=== PATIENT | female | born 1940 ===

== ENCOUNTER 2025-05-27 13:17 | Outpatient (AMB) | payer MEDICARE, OTHER, SELFPAY ==
--- NOTE | 2025-05-27 13:22 | MHC.OFFVIS ---
Vital Signs 05/27/25 13:25 Height 5 ft 1.5 in Weight 149 lb BMI 27.7 BP 128/56 L Blood Pressure Location Lt brachial Position Sitting Respiration 20 Pulse 109 H Pulse Source Pulse Oximeter Pulse Oximetry (%) 96 Oxygen Delivery Method Room Air Intake Visit Reasons: CHRONIC MIDLINE LOW BACK PAIN Emulsification Operator Required: No Allergies bee pollen Allergy (Unknown, Verified 05/27/25 13:22) Swelling bee venom protein (honey bee) Allergy (Unknown, Verified 05/27/25 13:22) Unknown gabapentin Allergy (Unknown, Verified 05/27/25 13:22) Rash lisinopril Allergy (Unknown, Verified 05/27/25 13:22) Cough oxycodone Allergy (Unknown, Verified 05/27/25 13:22) Unknown simvastatin Allergy (Unknown, Verified 05/27/25 13:22) Leg Cramping tramadol Allergy (Unknown, Verified 05/27/25 13:22) Nausea and Vomiting HPI Comments Details: Ayana is very pleasant 84 years old female who presents in my office with complains on lower back pain. She reports severe pain with prolonged standing and walking. She reports that leaning forward on the cart alleviate her pain when she is shopping in the [employer]. Sitting or lying down alleviates her pain. Her pain onset was gradual and it started about 5-6 years ago. She is able to sleep normally she is able to do activities of daily living, she can take care of herself but she can not function normally. She is retired individual. Her pain is constant and 8/10 with activities. She performed Oswestry disability scoring questionnaire and her total disability score is equal to 16 which demonstrates moderate disability. In terms of tissue damage he describes her pain as dull sore hurting aching and heavy sensation. She had images at [facility] and those images are not available for me. She had prolonged course of physical therapy, she reported that physical therapy was stopped because of non progression. She tried acupuncture we did not help her pain. She went to Dr. Kumari and received unknown injections in the back which patient states were steroid. She denied any help from those injections. She tried NSAIDs and Cheema inhibitors including Celebrex, those medications were stopped because of renal function declined. Her past medical history significant for hypertension, dizziness and fainting, and history of gallstones. Past surgical history significant for laminectomy with unknown situation with hardware. She has a surgery for endometrial cancer and cataract surgery. She denies smoking cigarettes admits rare drinking of wine denies recreational drugs and admits drinking coffee 1 cup a day. Review of Systems Const All systems reviewed & are unremarkable except as noted in HPI and below ENT Reports Normal hearing present Neuro Reports Normal hearing present, Denies Abnormal speech present, Denies confusion and Denies Sensory deficit (Neuro) Psych Denies confusion Physical Exam Vital Signs: Last Vital Signs Pulse 109 H 05/27/25 13:25 Resp 20 05/27/25 13:25 BP 128/56 L 05/27/25 13:25 Pulse Ox 96 05/27/25 13:25 Oxygen Delivery Method Room Air 05/27/25 13:25 BMI result Body Mass Index 27.7 Const General: no acute distress; No confusion Orientation/consciousness: patient oriented x3 and No confusion Eyes General: appearance normal, both eyes and all related structures Pupils: Equal, round and reactive pupils present EOM: EOMs intact bilaterally Neck Neck: Yes full ROM Chest Chest palpation & inspection: normal inspection of the chest Resp Effort & Inspection: normal respiratory effort, able to speak in complete sentences, normal respiratory pattern, no audible wheezes and no cough Cardio Jugular venous distension: no JVD GI Inspection: Yes normal to inspection Back/Spine/Pelvis Other: She is able to stand on bilateral tiptoes in bilateral heels without difficulty. Flexing forward does not aggravate her pain. Flexing backwards does not aggravate her pain. The patient complains on significant discomfort with prolonged standing and walking. SLR is negative bilaterally. Lasegue test is negative bilaterally. Musa test is negative bilaterally. Loading test is equivocal on the right and negative on the left. There is tenderness on palpation in the projection of the paraspinal region of the most lower portion of the lumbar spine. Neuro General: patient oriented x3, gait normal and No confusion Cranial nerves: Yes CN's II-XII intact bilaterally, Yes Equal, round and reactive pupils present, Yes Normal hearing present and Yes Ability to bilaterally elevate shoulders present Speech: No Abnormal speech present Gait exam (Neuro): Normal gait present Motor exam (neuro): 5/5 motor strength present throughout Sensory Exam: No Sensory deficit (Neuro) Extrem General: No pedal edema Psych Speech and movement: Normal speech and movement present Affect: normal affect Attitude: cooperative Thought process: Normal thought process present Thought content: Normal thought content present Insight: Good insight present (Psych) Judgement: Good judgement present (Psych) Assessment & Plan Assessment & Plan (1) Postlaminectomy syndrome, lumbar: Code(s): M96.1 - Postlaminectomy syndrome, not elsewhere classified Category: Medical (2) Chronic pain syndrome: Code(s): G89.4 - Chronic pain syndrome Category: Medical (3) Degenerative disc disease, lumbar: Code(s): M51.369 - Other intervertebral disc degeneration, lumbar region without mention of lumbar back pain or lower extremity pain Category: Medical (4) Spondylosis of lumbosacral region: Code(s): M47.817 - Spondylosis without myelopathy or radiculopathy, lumbosacral region Category: Medical Plan During the physical exam today I did not appreciate the fact that the patient had 3 surgeries on her lower back. I offered her medial branch blocks however now I think I need to evaluate her images before scheduling her for medial branch block. We will give her a call and request her to expedite delivery of the MRI report an MRI images she had at [facility]. After that I will make a decision about further treatment of this patient and potential procedures which would be necessary. Coding Level of Care Code New Pt Level 3 (84971) Diagnoses Postlaminectomy syndrome, lumbar M96.1 Chronic pain syndrome G89.4 Degenerative disc disease, lumbar M51.369 Spondylosis of lumbosacral region M47.817
[2025-05-27 13:25] VITALS: BP 128/56; PULSE 109; RESP 20; O2SAT 96; BMI 27.7
--- OUTSIDE RECORDS SUMMARY | 2025-05-27 13:59 | XMS_ITS | Clinical Summary ---
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 Active acetaminophen (TYLENOL) 500 mg tablet Take 2 tablets (1,000 mg total) by mouth. Active ezetimibe (ZETIA) 10 mg tablet Take 1 tablet (10 mg total) by mouth 1 (one) time each day. 90 tablet 1 5 Active amLODIPine (NORVASC) 5 mg tablet Take 1 tablet (5 mg total) by mouth 1 (one) time each day. 90 each 1 5 Active irbesartan (AVAPRO) 300 mg tablet Take 1 tablet (300 mg total) by mouth 1 (one) time each day. 90 each 5 06/28/20 25 Active fluticasone propionate (FLONASE) 50 mcg/actuation nasal spray Administer 2 sprays into each nostril 1 (one) time each day. Shake gently. Before first use, prime pump. After use, clean tip and replace cap. 16 g 5 5 04/06/20 26 Active metoprolol succinate (TOPROL-XL) 50 mg 24 hr tablet Take 2 tablets (100 mg total) by mouth 1 (one) time each day. 180 tablet 1 5 Active pravastatin (PRAVACHOL) 10 mg tablet Take 1 tablet (10 mg total) by mouth 1 (one) time each day. 90 tablet 1 5 Active spironolactone (ALDACTONE) 25 mg tablet Take 1 tablet (25 mg total) by mouth 1 (one) time each day. 90 tablet 1 5 Active spironolactone (ALDACTONE) 25 mg tablet Take 1 tablet (25 mg total) by mouth 1 (one) time each day. 90 tablet 1 5 05/06/20 25 Discontinu ed(Reorder ) pravastatin (PRAVACHOL) 10 mg tablet Take 1 tablet (10 mg total) by mouth 1 (one) time each day. 90 tablet 1 5 05/06/20 25 Discontinu ed(Reorder ) metoprolol succinate (TOPROL-XL) 50 mg 24 hr tablet Take 2 tablets (100 mg total) by mouth 1 (one) time each day. 180 tablet 1 5 05/06/20 25 Discontinu ed(Reorder ) Active Problems Problem Noted Date Diagnosed Date HTN (hypertension) 06/20/2024 Overview (06/20/2024): Reassuring Holter 11/2018, nuc stress 11/2019 Hyperlipidemia 06/20/2024 Impaired fasting glucose 06/20/2024 Osteopenia 06/20/2024 Carpal tunnel syndrome on left 02/02/2022 Degenerative joint disease (DJD) of hip 03/23/20 21 Spinal stenosis of lumbar re gion with neurogenic claudication 11/02/2020 Overview (06/20/2024): Lumbar decompression with Dr. Steinberg 11/2020 Traumatic complete tear of left rotator cuff Left rotator cuff tear 09/17/2019 Overview (06/20/2024): MRI 08/2019 Nocturnal leg cramps 09/17/2019 Shoulder impingement syndrome, left 07/31/2019 Adhesive capsulitis of left shoulder 05/07/2019 Subacromial bursitis of left shoulder joint 03/2019 Trochanteric bursitis, right hip 06/27/2017 Syncope 01/07/2016 Diverticulosis of colon 10/14/2014 Overview (06/20/2024): Seen on colonoscopy 2010 Liver abscess 10/14/2014 Overview (06/20/2024): Hospitalized 2005 Encounters Date Type Department Care Team Description 05/19/2025 3:30 PM EDT Consult Nephrology - [address] [address] Néstor Kennedy MD JUDITH (acute kidney injury) (CMS/HCC V24) (Primary Dx); CKD stage 3a, GFR 45-59 ml/min (CMS/HCC V24, CMS/HCC V28); Primary hypertension 04/24/2025 10:00 AM EDT Consult Vascular Surgery - [place] [address] [place] [address] Magda Edwards MD Carotid artery calcification, bilateral 04/06/2025 10:00 AM EDT Office Visit Internal Medicine - [address] [address] Vish Cuba PA Primary hypertension (Primary Dx); Mixed hyperlipidemia; Immunization due from Last 3 Months Immunizations Name Administration Dates Next Due Influenza Quadravalent, 0.5m l (Fluzone High-dose) 65yo and older 07/27/2023,07/02/2023,06/15/2016 Influenza trivalent, 0.5mL ( Fluzone High-dose) 65yo and older 05/29/2024,07/15/2021,06/27/2019,07/12,07/10/2017,06/10/2016,06/22/2015 Pfizer SARS-CoV-2 COVID-19, mRNA, LNP-S, preservative free 07/26/2021 Pneumococcal conjugate 13 va lent (Prevnar 13, PCV13) 2mo and older 02/18/2015 Pneumococcal polysaccharide 23 valent (Pneumovax 23) 2yo and older 11/02/2005 RSV, bivalent, protein subun it RSVpreF, 0.5mL, Preservative Free (Arexvy) 60yo and older 05/29/2024 Tdap Tetanus diptheria acell ular pertussis (Boostrix; Adacel) 7yo and older 04/06/2025,10/20/2014 Zoster Live 06/01/2009 Zoster recombinant (Shingrix ) 19yo and older 10/13/2019,07/07/2019 Surgical History Surgery Date Site/Laterality Comments APPENDECTOMY PROCEDURE: HISTORICAL APPENDECTOMY CHOLECYSTECTOMY PROCEDURE: HISTORICAL CHOLECYSTECTOMY BACK SURGERY PROCEDURE: HISTORICAL BACK SURGERY HYSTERECTOMY PROCEDURE: HISTORICAL TOTAL HYSTERECTOMY WITH BSO; COMMENT: SILVIA BSO, endometrial carcinoma COLONOSCOPY 2010 PROCEDURE: HISTORICAL COLONOSCOPY TONSILLECTOMY PROCEDURE: HISTORICAL TONSILLECTOMY LUMBAR LAMINECTOMY 11/05/2020 PROCEDURE: HISTORICAL LUMB LAMINECTOMY; COMMENT: Dr. Steinberg; bilateral L2-3, L3-4, and L4-5 laminotomy, partial facetectomy, and foraminotomies to decompress the thecal sac and exiting nerve roots (neurogenic claudication) BACK SURGERY 01/2021 PROCEDURE: HISTORICAL BACK SURGERY; COMMENT: cyst removal/revision from 11/[address] Steinberg HIP ARTHROPLASTY 04/12/2021 Right PROCEDURE: HISTORICAL HIP REPLACEMENT; COMMENT: CINDY, Dr. Ledezma Medical History Medical History Date Comments HTN (hypertension) DX:HTN (hyper tension) Prediabetes DX:Prediabetes History of endometrial cancer DX :History of endometrial cancer; COMMENT: s/p SILVIA Osteopenia DX:Osteopenia Hyperlipidemia DX:Hyperlipidemi a Diverticulosis of colon 10/14/2014 DX:Diver ticulosis of colon Liver abscess 10/14/2014 DX:Liver abscess ; COMMENT: Hospitalized 2004 Family History Medical History Relation Name Comments Coronary artery disease Father Coronary artery disease Mother Breast cancer Neg Hx Diabetes Neg Hx Hypertension Neg Hx Other cancer Neg Hx Relation Name Status Comments Father Mother Social History Tobacco Use Types Packs/Day Years Used Date Smoking Tobacco: Never Smokeless Tobacco: Never Tobacco Cessation:Counseling Given: Not Answered Alcohol Use Standard Drinks/Week Comments No 0 (1 standard drink = 0.6 oz pur e alcohol) Housing Instability Answer Date Recorde d Are you worried that in the next 2 months you may not have stable housing? No 11/18/2024 Food Access & Nutrition Answer Date Rec orded Do you have access to a vari ety of food including fruits and vegetables? Yes 11/18/2024 Access to Healthcare Answer Date Record ed Within the last 3 months, ho w many times did you visit the emergency department for your medical care? 0 11/18/2024 Health Literacy Answer Date Recorded How often do you need to hav e someone help you when you read instructions, pamphlets, or other written material from your doctor or pharmacy? Never 11/18/2024 Caregiver: How often do you need to have someone help you when you read instructions, pamphlets, or other written material from your doctor or pharmacy? Not on file 11/18/2024 Transportation Answer Date Recorded Has the lack of transportati on kept you from meetings, work, or from getting things needed for daily living? No Has the lack of transportati on kept you from medical appointments or from getting medications? No 11/18/2024 Social Isolation Answer Date Recorded How often do you feel lonely or isolated from th ose around you? Never 11/18/2024 Food Risk Answer Date Recorded Within the past 12 months we worried whether our food would run out before we got money to buy more. Never true 11/18/2024 Within the past 12 months th e food we bought just didn't last and we didn't have money to get more. Never true 11/18/2024 Dependent Care Answer Date Recorded Do you need help finding or paying for care for your loved ones. For example, child and adolescent psychologist or elderly care for an older adult? No 11/18/2024 Education Answer Date Recorded Do you think completing more education or training, like finishing a GED, going to college, or learning a trade, would be helpful for you? No 11/18/2024 Employment and Income Answer Date Recor ded During the last four weeks, have you been actively looking for work? No 11/18/2024 Living Situation Answer Date Recorded What is your living situation? 0 11/18/2024 Comments No Sex and Gender Information Value Date Recorded Sex Assigned at Not on file Legal Sex Female 5:48 PM EST Gender Identity Not on file Sexual Orientation Not on file Obstetrics History Last Filed Vital Signs Vital Sign Reading Time Taken Comments Blood Pressure 146/70 05/19/2025 3:59 PM EDT Pulse 56 04/24/2025 9:47 AM EDT Temperature 36.3 C (97.4 F) 10/30/2024 9:55 AM EST Respiratory Rate 16 04/06/2025 9:49 AM EDT Oxygen Saturation 98% 10/30/2024 9:55 AM EST Inhaled Oxygen Concentration - - Weight 78.5 kg (173 lb 1.6 oz) 05/19/2025 3:59 P M EDT Height 154.9 cm (5' 1 ) 04/24/2025 9:44 AM EDT Body Mass Index 32.71 04/24/2025 9:44 AM EDT Plan of Treatment Upcoming Encounters Date Type Department Care Team (Late st Contact Info) Description 10/07/2025 9:45 AM EST [facility] [address] [place], [place] [phone] Vish Cuba PA [address] [place] [address] 01/26/2026 3:00 PM EDT [facility] [address] [place], [place] [phone] Néstor Kennedy MD [address] [place] [address] Health Maintenance Due Date Last Done Comments COVID-19 Vaccine ( season) 2024 05/29/2024, 07/02/2023, 07/25/2022, Additional history exists Medicare Annual Wellness Visit 03/20/2025 03/20/2024 Influenza Vaccine (#1) 2025 4, 07/27/2023, 07/02/2023, Additional history exists Social Influencers of Health Screening 11/18/2025 11/18/2024 Hypertension/CHF/CAD Annual BMP Blood Test 01/12/2026 01/12/2025, 11/20/2024, 10/27/2024, Additional history exists Falls Risk Assessment 04/06/2026 04/06/2025, 024 Osteoporosis Screening (Bone Density Screening) 06/08/2027 06/08/2022, 01/01/2017 Cholesterol Screening (Lipid Panel) 01/12/2030 01/12/2025, 10/12/2022 DTaP,Tdap,and Td Vaccines (3 - Td or Tdap) 04/06/2035 04/06/2025, 10/20/2014 Pneumococcal Vaccine: 50+ Years Completed 02/18/2015, 11/02/2005 Zoster Vaccines Completed 10/13/2019, 1003/2019, 06/01/2009 RSV Immunization Adult Patients Completed 05/29/2024 Depression Screening Completed 03/30/2025, 03/20/20 24 HIB Vaccines Aged Out No longer eligi ble based on patient's age to complete this topic HPV Vaccines Aged Out No longer eligi ble based on patient's age to complete this topic Hepatitis A Vaccines Aged Out No long er eligible based on patient's age to complete this topic Hepatitis B Vaccines Aged Out No long er eligible based on patient's age to complete this topic IPV Vaccines Aged Out No longer eligi ble based on patient's age to complete this topic MMR Vaccines Aged Out No longer eligi ble based on patient's age to complete this topic Meningococcal ACWY Vaccine Aged Out N o longer eligible based on patient's age to complete this topic Meningococcal B Vaccine Aged Out No l onger eligible based on patient's age to complete this topic RSV Immunization Patients Under 20 months Aged Out No longer eligible based on patient's age to complete this topic Varicella Vaccines Aged Out No longer eligible based on patient's age to complete this topic Procedures Procedure Name Priority Date/Time Associated Diagnosis Comments COMPREHENSIVE METABOLIC PANEL Routine 01/12/2025 8:43 AM EDT Secondary hypertension LIPID PANEL WITH REFLEX TO DIRECT LDL Routine 01/12/2025 8:43 AM EDT Mixed hyperlipidemia DEPRESSION SCREENING Routine 03/20/2024 FALLS RISK ASSESSMENT Routine 03/05/2024 DXA BONE DENSITY STUDY 1+ SITS AXIAL SKEL Routine 06/08/2022 3:26 PM EDT Encounter for screening for osteoporosis from Last 3 Months or Most Recently Relevant to Health Maintenance Results * (ABNORMAL) Lipid panel with reflex to direct LDL (01/12/2025 8:43 AM EDT) [facility] Signature Cholesterol 190 0 - 200 mg/dL LAB CHEMISTRY METHOD 01/12/2025 4:56 PM EDT [facility] Triglycerides 404(H) 0 - 150 mg/dL LAB CHEMISTRY METHOD 01/12/2025 4:56 PM EDT [facility] HDL 55 >=40 mg/dL LAB CHEMISTRY METHOD 01/12/2025 4:56 PM T [facility] LDL Calculated 54 0 - 100 mg/dL LAB CHEMISTRY METHOD 01/12/2025 4:56 PM T [facility] Comment:Unable to calculate when triglycerides >400 mg/dL. VLDL Cholesterol Florentin 80.8 mg/dL LAB CHEMISTRY METHOD 01/12/2025 4:56 PM [facility] Comment:Unable to calculate when triglycerides >400 mg/dL. Non HDL Chol. (LDL+VLDL) 135 <145 mg/dL LAB CHEMISTRY METHOD 01/12/2025 4:56 PM T [facility] Comment:Unable to calculate when triglycerides >400 mg/dL. Chol/HDL Ratio 3.5 0.0 - 4.4 LAB CHEMISTRY METHOD 01/12/2025 4:56 PM [facility] Blood Venous blood specimen / Unknown Venipuncture / Unknown 01/12/2025 8:43 AM EDT 01/12/2025 8:43 AM EDT us Yvan Cruz MD LAB BLOOD ORDERABLES Final Resu lt [facility] [address] [place] [address], * (ABNORMAL) Comprehensive metabolic panel (01/12/2025 8:43 AM EDT) Sodium 137 133 - 145 mmol/L LAB CHEMISTRY METHOD 01/12/2025 4:55 PM [facility] Potassium 4.6 3.5 - 5.5 mmol/L LAB CHEMISTRY METHOD 01/12/2025 4:55 PM [facility] Chloride 103 96 - 110 mmol/L LAB CHEMISTRY METHOD 01/12/2025 4:55 PM [facility] CO2 27 21 - 32 mmol/L LAB CHEMISTRY METHOD 01/12/2025 4:55 PM [facility] Anion Gap 7 3 - 11 LAB CHEMISTRY METHOD 01/12/2025 4:55 PM [facility] Glucose 109(H) 70 - 100 mg/dL LAB CHEMISTRY METHOD 01/12/2025 4:55 PM [facility] BUN 19 5 - 25 mg/dL LAB CHEMISTRY METHOD 01/12/2025 4:55 PM [facility] Creatinine 0.94 0.50 - 1.10 mg/dL LAB CHEMISTRY METHOD 01/12/2025 4:55 PM [facility] eGFR 59(L) >=60 mL/min/1. 73m2 LAB CHEMISTRY METHOD 01/12/2025 4:55 PM [facility] Comment:Calculation based on the Chronic Kidney Disease Epidemiology Collaboration (CKD-EPI) equation refit without adjustment for race. BUN/Creatinine Ratio 20.2 LAB CHEMISTRY METHOD 01/12/2025 4:55 PM [facility] Calcium 9.8 8.5 - 10.5 mg/dL LAB CHEMISTRY METHOD 01/12/2025 4:55 PM EDT [facility] AST (SGOT) 12 10 - 42 unit/L LAB CHEMISTRY METHOD 01/12/2025 4:55 PM EDT [facility] ALT (SGPT) 19 10 - 60 unit/L LAB CHEMISTRY METHOD 01/12/2025 4:55 PM EDT [facility] Alkaline Phosphatase 90 42 - 121 unit/L LAB CHEMISTRY METHOD 01/12/2025 4:55 PM EDT [facility] Total Protein 7.2 6.0 - 8.0 g/dL LAB CHEMISTRY METHOD 01/12/2025 4:55 PM EDT [facility] Albumin 4.1 3.2 - 5.0 g/dL LAB CHEMISTRY METHOD 01/12/2025 4:55 PM EDT [facility] Total Bilirubin 0.5 0.0 - 1.4 mg/dL LAB CHEMISTRY METHOD 01/12/2025 4:55 PM EDT [facility] Blood Venous blood specimen / Unknown Venipuncture / Unknown 01/12/2025 8:43 AM EDT 01/12/2025 8:43 AM EDT us Yvan Cruz MD LAB BLOOD ORDERABLES Final Resu lt [facility] [address] [place] [address], * Depression Screening (03/20/2024) HM Depression Screening Abstracted Historical Provider HEALTH MAINTENANCE Final Result * Falls Risk Assessment (03/05/2024) Falls Risk Assessment Abstracted us Historical Provider HEALTH MAINTENANCE Final Result * DXA BONE DENSITY STUDY 1+ SITS AXIAL SKEL (06/08/2022 3:26 PM EDT) Anatomical Region Laterality Modality Bone Densitometr y 02/17/2022 9:48 AM EDT Narrative 06/08/2022 5:11 PM EDT BONE DENSITY Lumbar Spine T-score is +0.3 (SD relative to 20-29 y/o adult) Z-score is +3.1 (SD relative to age matched peers) This is normal by criteria defined by the WHO. Left Hip T-score is -1.6 Z-score is +0.6 This is consistent with osteopenia by criteria defined by the WHO. Comparison exam(s): significant decrease in bone density of hip when compared to most recent bone density examination Confidence level is +/-95%. Impression: Based on the World Health Organization criteria, Ayana Phillips should be classified as having osteopenia. This patient has a 19% risk of major osteoporotic fracture and a 5.6% risk of hip fracture over the next 10 years. (World Health Organization Fracture Risk Assessment) The [facility] Department of Internal Medicine recommends using National Osteoporosis Foundation (NOF) guidelines in treatment decisions related to osteoporosis. NOF guidelines suggest considering treatment for postmenopausal women and men aged 50 or older presenting with the following: History of hip or vertebral fracture. T-score less than or equal to -2.5 (DXA) at the femoral neck, total hip, or spine, after appropriate evaluation to exclude secondary causes. Low bone mass (T-score between -1.0 and -2.5 at the femoral neck or spine) AND a 10-year probability of a hip fracture greater than or equal to 3% OR a 10-year probability of a major osteoporosis-related fracture greater than or equal to 20% based on the [place]-adapted WHO algorithm Please note that all treatment decisions require clinical judgment and consideration of individual patient factors, including patient preferences, co-morbidities, previous drug use, risk factors not captured in the FRAX model (e.g., frailty, falls, vitamin D deficiency, increased bone turnover, interval significant decline in bone density) and possible under- or over-estimation of fracture risk by FRAX. Procedure Note Musa Cohen MD - 09/19/2022 BONE DENSITY Lumbar Spine T-score is +0.3 (SD relative to 20-29 y/o adult) Z-score is +3.1 (SD relative to age matched peers) This is normal by criteria defined by the WHO. Left Hip T-score is -1.6 Z-score is +0.6 This is consistent with osteopenia by criteria defined by the WHO. Comparison exam(s): significant decrease in bone density of hip whencompared to most recent bone density examination Confidence level is +/-95%. Impression: Based on the World Health Organization criteria, Ayana J Alan shouldbe classified as having osteopenia. This patient has a 19% risk of majorosteoporotic fracture and a 5.6% risk of hip fracture over the next 10years. (World Health Organization Fracture Risk Assessment) The [facility] Department of Internal Medicine recommendsusing National Osteoporosis Foundation (NOF) guidelines in treatmentdecisions related to osteoporosis. NOF guidelines suggest consideringtreatment for postmenopausal women and men aged 50 or older presentingwith the following: History of hip or vertebral fracture. T-score less than or equal to -2.5 (DXA) at the femoral neck, total hip,or spine, after appropriate evaluation to exclude secondary causes. Low bone mass (T-score between -1.0 and -2.5 at the femoral neck or spine)AND a 10-year probability of a hip fracture greater than or equal to 3% ORa 10-year probability of a major osteoporosis-related fracture greaterthan or equal to 20% based on the [place]-adapted WHO algorithm Please note that all treatment decisions require clinical judgment andconsideration of individual patient factors, including patientpreferences, co-morbidities, previous drug use, risk factors not capturedin the FRAX model (e.g., frailty, falls, vitamin D deficiency, increasedbone turnover, interval significant decline in bone density) and possibleunder- or over-estimation of fracture risk by FRAX. 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 Health Care Decision (hx) 03/20/2018 AD SANTANA DIRECTIVE Health Care Decision (hx) 03/20/2018 AD SANTANA DIRECTIVE Health Care Decision (hx) 03/20/2018 AD SANTANA DIRECTIVE Health Care Decision (hx) 03/20/2018 AD SANTANA DIRECTIVE Health Care Decision (hx) 03/20/2018 AD SANTANA DIRECTIVE Health Care Decision (hx) 03/20/2018 AD SANTANA DIRECTIVE Health Care Decision (hx) 03/20/2018 AD SANTANA DIRECTIVE Health Care Decision (hx) 03/20/2018 AD SANTANA DIRECTIVE Health Care Decision (hx) 03/20/2018 AD SANTANA DIRECTIVE Health Care Decision (hx) 03/20/2018 AD SANTANA DIRECTIVE Health Care Decision (hx) 03/20/2018 AD SANTANA DIRECTIVE Health Care Decision (hx) 03/20/2018 AD SANTANA DIRECTIVE Health Care Decision (hx) 03/20/2018 AD SANTANA DIRECTIVE Health Care Decision (hx) 03/20/2018 AD SANTANA DIRECTIVE 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
--- OUTSIDE RECORDS SUMMARY | 2025-05-27 13:59 | XMS_ITS | Clinical Summary ---
Author Organization [facility] Address [address] [place] [address] Care Team Providers Care Tram Operator Name Role Phone Guerline Rogers MD Primary Care Provider + Allergies Active Allergy Reactions Criticality Noted Date Comments Bee Sting 06/27/2017 Oxycodone-Aspirin 06/27/2017 Simvastatin 07/27/2017 Other reaction(s): OTHER Leg cramping Medications Medication Sig Dispensed Refills Start Date End Date Status metoprolol succinate (TOPROL-XL) 24 hr tablet 25 mg Take by mouth daily. 0 Active simvastatin (ZOCOR) tablet 20 mg Take 20 mg by mouth every night at bedtime. 0 Active valsartan (DIOVAN) tablet 40 mg Take 40 mg by mouth daily. 0 Active aspirin 81 MG chewable tablet Chew 81 mg by mouth daily. 0 Active Multiple Vitamin (MULTI VITAMIN PO) Take by mouth. 0 Ac tive Fish Oil-Cholecalciferol (FISH OIL + D3 PO) Take by mouth. 0 Ac tive irbesartan (AVAPRO) 300 MG tablet Take 150 mg by mouth. 0 04/15/2019 Active Coenzyme Q10 50 MG CAPS Take 100 mg by mouth. 0 Active Cholecalciferol (VITAMIN D3) 1000 units CAPS Take 1 capsule by mouth. 0 Active pravastatin (PRAVACHOL) tablet 20 mg Take 20 mg by mouth. 0 09/17/2019 Active Active Problems Problem Noted Date Diagnosed Date Traumatic complete tear of left rotator cuff Shoulder impingement syndrome, left 07/31/2019 Adhesive capsulitis of left shoulder 05/07/2019 Subacromial bursitis of left shoulder joint 03/2019 Trochanteric bursitis, right hip 06/27/2017 Family History Medical History Relation Name Comments Hypertension Mother Hypertension Sister Relation Name Status Comments Mother Sister Social History Tobacco Use Types Packs/Day Years Used Date Smoking Tobacco: Never Smokeless Tobacco: Never Alcohol Use Standard Drinks/Week Comments No 0 (1 standard drink = 0.6 oz pur e alcohol) Sex and Gender Information Value Date Recorded Sex Assigned at Not on file Gender Identity Not on file Sexual Orientation Not on file Last Filed Vital Signs Vital Sign Reading Time Taken Comments Blood Pressure - - Pulse - - Temperature - - Respiratory Rate - - Oxygen Saturation - - Inhaled Oxygen Concentration - - Weight 79.4 kg (175 lb) 11/18/2019 2:46 PM EST Height 157.5 cm (5' 2 ) 11/18/2019 2:46 PM EST Body Mass Index 32.01 11/18/2019 2:46 PM EST Plan of Treatment Health Maintenance Due Date Last Done Comments Depression Screening 1950 BMI Counseling 1956 Preventative Health Evaluation 1956 Fall Risk Assessment 2003 Osteoporosis Screening (DEXA Scan) 2003 RSV Adult > 60+ Yrs or (1 - 1-dose 75+ series) 2013 COVID-19 Vaccine ( season) 2024 07/26/2021, 11/25/2020, 11/03/2020 DTap / Tdap / Td (2 - Td or Tdap) 10/20/2024 10/20/2014 Influenza Vaccine (#1) 2025 3, 07/02/2023, 07/15/2021, Additional history exists Pneumococcal Vaccine Completed 02/18/2015, 11/02/19 06 Shingrix-Zoster Vaccine Completed 10/18/2019, 07/07 Hepatitis B Vaccines Aged Out No long er eligible based on patient's age to complete this topic RSV Ped < 20 months Aged Out No longe r eligible based on patient's age to complete this topic Care Teams Tram Operator Relationship Specialty Start Date End Date Guerline Rogers MD PCP - General Internal Medicine 06/06/17
--- OUTSIDE RECORDS SUMMARY | 2025-05-27 13:59 | XMS_ITS ---
Author Name [facility] Organization Unknown Care Team Organization Name Specialty Phone Email Start Date End Da te [facility] 05/20/2025 [facility] Vish Cuba Primary [facility] 09/12/202305/01 [facility] Yvan Cruz Primary [facility] 06/07/20232023 [facility] Diana Easley Primary Care 08/08/2022 05/19/2024
== END 2025-05-27 13:58 | disposition home or self-care (01) ==
PROVIDERS: PCP Internal Medicine; Visit Provider Anesthesiology
DX: M96.1 Postlaminectomy syndrome, not elsewhere classified (principal); G89.4 Chronic pain syndrome; M51.369 Other intervertebral disc degeneration, lumbar region without mention of lumbar back pain or lower extremity pain; M47.817 Spondylosis without myelopathy or radiculopathy, lumbosacral region
CPT/HCPCS: 99203

== ENCOUNTER → 2025-05-27 13:17 | Outpatient (BNVA) | payer MEDICARE, OTHER, SELFPAY | PROVIDERS: PCP Internal Medicine; Visit Provider Anesthesiology | DX: M96.1 Postlaminectomy syndrome, not elsewhere classified (principal); M51.369 Other intervertebral disc degeneration, lumbar region without mention of lumbar back pain or lower extremity pain; M47.817 Spondylosis without myelopathy or radiculopathy, lumbosacral region; G89.4 Chronic pain syndrome | CPT/HCPCS: 99202 ==